=== PATIENT | male | born 1975 | race Hispanic/Latino ===

== ENCOUNTER → 2017-12-26 | Day surgery (SDC) | payer OTHER ==
[~2017-12-26] MED LIST: BUPIVACAINE HCL 0.5% INJ 30 ML VIAL INJ ONE; BUPIVACAINE LIPOSOME/PF 266 MG/20 ML IJ ONE; CEFAZOLIN SOD 1 GM VIAL ONE; DEXAMETHASONE SOD PHOS INJ 4 MG/ML VIAL ONE; FENTANYL CITRATE/PF 100MCG/2 ML INJ ONE; HYDROCODONE/APAP 7.5MG-325MG 1 EA TAB ONE; KETOROLAC TROMETHAMINE 30 MG/ML VIAL ONE; LIDOCAINE HCL 2% LOCAL INJ 5 ML SDV VIAL INJ ONE; MIDAZOLAM HCL 2 MG/2 ML VIAL ONE; NORCO 10-325 T1 EACH PO; NORCO 7.5-3251 EACH PO; ONDANSETRON HCL INJ 2 MG/ML VIAL ONE; PROPOFOL IV EMULSION 10 MG/ML 20 ML VIAL ONE; SEVOFLURANE INHAL SOLN 250 ML PEN BTL ONE
[2017-12-26 16:15] VITALS: BP 120/63
--- NOTE | 2018-01-03 15:50 | Operative Report ---
DATE OF PROCEDURE: December 26, 2017 [employer] WORKER: None. PREOPERATIVE DIAGNOSIS: Right foot 4th metatarsal fracture. POSTOPERATIVE DIAGNOSIS: Right foot 4th metatarsal fracture. PROCEDURES 1. Right foot open reduction with external fixation of the right foot 4th metatarsal. 2. Application of external fixator multiplane. 3. Use of intraoperative fluoroscopy. 4. Right tibial nerve block. 5. Application of posterior splint. HEMOSTASIS: Thigh tourniquet at 250 mmHg. MATERIALS USED: A [place] external fixator. DESCRIPTION OF PROCEDURE: After informed consent was obtained, the patient was brought into the operating room and placed on the operating table in supine position. General anesthesia was obtained. A pneumatic thigh tourniquet was applied to the right thigh. The right lower extremity was scrubbed, prepped, and draped in the usual aseptic manner. Attention was directed to the right foot, where an incision was made, after utilizing intraoperative fluoroscopy, overlying the fracture of the right 4th metatarsal shaft. Next, utilizing sharp dissection technique, the fracture was visualized. It was noted that the fracture was significantly comminuted in multiple pieces. Next, utilizing reduction clamps, the fracture was reduced into the appropriate alignment. Next, intraoperative decision was made that a buttress plate would not be sufficient to hold the metatarsal out to length and the fracture fragments in the appropriate alignment. Therefore, an external fixator was placed on top of the metatarsal, after reducing the fracture. Next, utilizing intraoperative fluoroscopy, the pins for the external fixator were placed distal to the fracture site into the head of the 4th metatarsal and proximal to the fracture. One was placed in the base of the 4th metatarsal and one into the cuboid. Next, the fracture site was thoroughly irrigated with copious amounts of normal saline. The skin was then coapted utilizing 3-0 Vicryl and 4-0 nylon. Next, the external fixator was placed. Intraoperative fluoroscopy was used. Next, the external fixator was used to lengthen out the fracture into the appropriate alignment and length of the 4th metatarsal. Next, intraoperative fluoroscopy was used, which showed good reduction of the deformity and good placement of the external fixator. The right foot was then anesthetized utilizing 20 mL of 0.5% Marcaine plain along the surgical site and 5 mL used for a right tibial nerve block. Next, the right foot was then placed in a dry sterile dressing consisting of Xeroform, 4 x 4's, Kerlix and Jose wrap. The pneumatic thigh tourniquet was deflated. Prompt hyperemic response was noted to the digits of the right lower extremity. The right lower extremity was then placed into a posterior splint consisting of 4 and 6 inch Webril, 4 x 30 splint and 4 and 6 inch Jose. The patient tolerated the procedure and the anesthesia well. The patient was transferred back to the recovery room with vital signs stable and neurovascular status intact to preop status. Job#: [id number]
== END | disposition home or self-care (01) ==
LOC: OR 10:39
PROVIDERS: ATTEND Podiatrist Foot & Ankle Surgery
DX: S92.341A Displaced fracture of fourth metatarsal bone, right foot, initial encounter for closed fracture (principal); K21.9 Gastro-esophageal reflux disease without esophagitis; Z01.810 Encounter for preprocedural cardiovascular examination; I44.0 Atrioventricular block, first degree; R00.1 Bradycardia, unspecified; X58.XXXA Exposure to other specified factors, initial encounter
CPT/HCPCS: 20692; 28485; 93005; C9290; J0690; J1100; J1885; J2001; J2250; J2405; J2704; Q4150; C1713; C1889